=== PATIENT | female | born 1990 | race Caucasian/White ===

== ENCOUNTER 2016-12-15 12:08 | Emergency (ER) | payer BC ==
[~2016-12-15] VITALS: Ht 160 cm; Wt 59.2 kg
[2016-12-15 12:31] VITALS: BP 129/71; PULSE 93; RESP 18; TEMP 98.6; O2SAT 96
--- NOTE | 2016-12-15 13:38 | PD ---
HPI . cold, cough, congestion x 5 days Chief Complaint: Cold / Flu Symptoms Time Seen by Provider: 13:38 Travel History International Travel<30 days: No Contact w/Intl Traveler<30days: No Traveled to known affect area: No History of Present Illness HPI 26-year-old female with no significant past medical history other than tobaccoism here with complaints of congestion and coughing for 5 days. Patient has tried ukji-czb-pzfkyvw remedies without any relief. She thinks she has a fever, but every time she has check she is afebrile. She is here seeking relief of her symptoms. She denies any chills. She has no rhinorrhea or sore throat. She has no other complaints. PFSH Past Medical History Medical History: Denies Significant Hx Tetanus Vaccination: > 5 Years Influenza Vaccination: No ?: Not Past Surgical History Surgical History: No Previous Surgery Social History Alcohol Use: Yes Tobacco Use: Yes Substance Use: No Allergies-Medications (Allergen,Severity, Reaction): Coded Allergies: Penicillin (Verified Allergy, Severe, Anaphylaxis, 12/15/16) Reported Meds & Prescriptions Reported Meds & Active Scripts Active Proair Hfa 8.5 GM Inh (Albuterol Sulfate) 90 Mcg/Act Aer 2 Puff INH Q6H PRN 108 mcg/actuation Prednisone 50 Mg Tab 50 Mg PO DAILY Tessalon Perles (Benzonatate) 100 Mg Cap 100 Mg PO TID PRN Zithromax Z-Ivan (Azithromycin) 250 Mg Dspk 250 Mg PO DIRECTED 500 MG (2 tabs) day 1, then 1 tab days 2-5. Review of Systems General / Constitutional: No: Fever Eyes: No: Visual changes HENT: Positive: Congestion, Other (facial pressure), No: Headaches Cardiovascular: No: Chest Pain or Discomfort Respiratory: Positive: Cough, No: Shortness of Breath Gastrointestinal: No: Abdominal Pain Genitourinary: No: Dysuria Musculoskeletal: No: Pain Skin: No Rash Neurologic: No: Weakness Psychiatric: No: Depression Endocrine: No: Polydipsia Hematologic/Lymphatic: No: Easy Bruising Physical Exam Narrative GENERAL: AAO x 3, no acute distress, Well-nourished, well-developed patient. SKIN: Warm and dry. No visible rashes or bruising. HEAD: Normocephalic and atraumatic. EYES: No scleral icterus. No injection or drainage. EOM intact, PERRLA ENT: No nasal drainage noted. Mucous membranes pink. Airway patent. No posterior pharynx erythema, edema or exudates. TMs normal bilaterally. Maxillary sinus tenderness present. NECK: Supple, trachea midline. No JVD. CARDIOVASCULAR: Regular rate and rhythm without murmurs, gallops, or rubs. RESPIRATORY: Breath sounds equally diminished bilaterally. No accessory muscle use. No rhonchi or rails. No wheezing. Dry cough heard all throughout examination. GASTROINTESTINAL: Abdomen soft, non-tender, nondistended. EXTREMITIES: No cyanosis or edema. BACK: Nontender without obvious deformity. No CVA tenderness. PSYCH: AAO x 3, normal affect. Data Data Last Documented VS Vital Signs Date Time Temp Pulse Resp B/P Pulse Ox O2 Delivery O2 Flow Rate FiO2 12/15/16 13:30 18 96 Room Air 12/15/16 12:31 98.6 93 129/71 MDM Medical Decision Making Medical Screen Exam Complete: Yes Emergency Medical Condition: Yes Medical Record Reviewed: Yes Differential Diagnosis Acute sinusitis, acute bronchitis, less likely pneumonia, less likely influenza Narrative Course 26-year-old female with no significant past medical history other than tobaccoism here with complaints of congestion and coughing for 5 days. Patient has tried cjvk-etu-cvhvamh remedies without any relief. She thinks she has a fever, but every time she has check she is afebrile. She is here seeking relief of her symptoms. She denies any chills. She has no rhinorrhea or sore throat. She has no other complaints. Patient seen and examined. She appears to have an acute sinusitis and bronchitis. Recommend a short course of antibiotics and prednisone. Recommend smoking cessation. Advise follow-up with primary care provider. Advised if her symptoms do not improve or worsen, return to the ED. Discussed the cough may linger for 6-8 weeks. Patient verbalized understanding of instructions, questions were answered, and thanked me for their care. I advised them if their condition worsens, please return to the nearest emergency room for further care. Diagnosis Primary Impression: Acute sinusitis Qualified Code: J01.00 - Acute non-recurrent maxillary sinusitis Additional Impression: Acute bronchitis Qualified Code: J20.9 - Acute bronchitis, unspecified organism Patient Instructions: Acute Bronchitis (ED), General Instructions, Sinusitis ( ED) Additional Instructions: As we discussed the cough can last 6-8 weeks. Take medications as prescribed. If you are a smoker, try to quit. Follow up with your primary care provider. If you develop sudden onset or worsening of shortness or breath, please go to the nearest emergency room. Please return to emergency department if your symptoms return or worsen. Follow up with your primary care provider. Take medications as prescribed. Med/Other Pt SpecificInfo: Prescription(s) given Scripts Albuterol 8.5 GM Inh (Proair Hfa 8.5 GM Inh)90 Mcg/Act Aer2 Puff INH Q6H PRN ( SHORTNESS OF BREATH) #1 INHALER Ref 0 108 mcg/actuation Prov:Isaac Olvera MD 12/15/16 Prednisone 50 Mg Tab50 Mg PO DAILY #5 TAB Prov:Isaac Olvera MD 12/15/16 Benzonatate (Tessalon Perles)100 Mg [id number] Mg PO TID PRN (COUGH) #30 CAP Ref 0 Prov:Isaac Olvera MD 12/15/16 Azithromycin (Zithromax Z-Ivan)250 Mg [id number] Mg PO DIRECTED #1 DSPK Ref 0 500 MG (2 tabs) day 1, then 1 tab days 2-5. Prov:Isaac Olvera MD 12/15/16 Disposition: 01 DISCHARGE HOME Condition: Stable Marie Gutierrez Dec 15, 2016 13:38
[2016-12-15] MEDS ORDERED: ALBUAER3 INH (13:43)
[2016-12-15] MEDS ORDERED: BENZ100 PO (13:43)
[2016-12-15] MEDS ORDERED: ZITHTAB PO (13:43)
[2016-12-15] MEDS ORDERED: PRED50 PO (13:43)
== END 2016-12-15 13:56 | disposition home or self-care (01) ==
LOC: PHEFT 12:08
DX: J01.90 Acute sinusitis, unspecified (principal); J20.9 Acute bronchitis, unspecified
CPT/HCPCS: 99283

== ENCOUNTER 2017-05-22 12:03 | Emergency (ER) | payer SELFPAY ==
[~2017-05-22] VITALS: Ht 160 cm; Wt 62.0 kg
[~2017-05-22 12:03] MED LIST: ALBUAER3 INH; BENZ100 PO; PRED50 PO; ZITHTAB PO
[2017-05-22 12:11] VITALS: BP 118/79; PULSE 65; RESP 16; TEMP 97.9; O2SAT 99
[2017-05-22] MEDS ORDERED: AZIT250T3 PO (13:09)
--- NOTE | 2017-05-22 13:10 | PD ---
HPI Chief Complaint: ENT Complaint Time Seen by Provider: 12:24 Travel History International Travel<30 days: No Contact w/Intl Traveler<30days: No Traveled to known affect area: No History of Present Illness HPI 27-year-old female chief complaint of productive cough and fever x one week. Patient reports subjective fevers. No aggravating or alleviating factors. Similar symptoms in the past with bronchitis. Symptom severity moderate PFSH Past Medical History Medical History: Denies Significant Hx Diminished Hearing: No Tetanus Vaccination: Unknown Influenza Vaccination: No ?: Not LMP: 04/30/17 Social History Alcohol Use: Yes (SOC) Tobacco Use: No Substance Use: No Allergies-Medications (Allergen,Severity, Reaction): Coded Allergies: penicillin G (Unverified Allergy, Severe, Anaphylaxis, 05/22/17) Reported Meds & Prescriptions Reported Meds & Active Scripts Active Azithromycin 250 Mg Tab 250 Mg PO DIRECTED Take 2 tabs (500 mg) on day 1 then 1 tab daily x 4 days. Review of Systems Except as stated in HPI: all other systems reviewed are Neg General / Constitutional: Positive: Fever Eyes: No: Visual changes HENT: No: Headaches Cardiovascular: No: Chest Pain or Discomfort Respiratory: Positive: Cough Gastrointestinal: No: Abdominal Pain Genitourinary: No: Dysuria Musculoskeletal: No: Pain Skin: No Rash Neurologic: No: Weakness Physical Exam Narrative GENERAL: Well-nourished, well-developed patient. SKIN: Focused skin assessment warm/dry. HEAD: Normocephalic. EYES: No scleral icterus. No injection or drainage. NECK: Supple, trachea midline. No JVD or lymphadenopathy. CARDIOVASCULAR: Regular rate and rhythm without murmurs, gallops, or rubs. RESPIRATORY: Breath sounds equal bilaterally. No accessory muscle use. Questionable rhonchi right upper lobe GASTROINTESTINAL: Abdomen soft, non-tender, nondistended. MUSCULOSKELETAL: No cyanosis, or edema. BACK: Nontender without obvious deformity. No CVA tenderness. Data Data Last Documented VS Vital Signs Date Time Temp Pulse Resp B/P (MAP) Pulse Ox O2 Delivery O2 Flow Rate FiO2 05/22/17 12:11 97.9 65 16 118/79 (92) 99 MDM Medical Decision Making Medical Screen Exam Complete: Yes Emergency Medical Condition: Yes Differential Diagnosis Bronchitis, pneumonia, URI Narrative Course 27-year-old female chief complaint of productive cough and fever x one week. On exam patient has questionable rhonchi. She is well-appearing and afebrile. Patient will be treated for bronchitis. Diagnosis Primary Impression: Bronchitis Referrals: Primary Care Physician Scripts Azithromycin (Azithromycin) 250 Mg Tab 250 MG PO DIRECTED for Infection, #6 TAB 0 Refills Take 2 tabs (500 mg) on day 1 then 1 tab daily x 4 days. Prov: Kate Lu 05/22/17 Disposition: 01 DISCHARGE HOME Condition: Stable Kate Lu May 22, 2017 13:09
== END 2017-05-22 13:28 | disposition home or self-care (01) ==
LOC: PHEFT 12:03
DX: J40 Bronchitis, not specified as acute or chronic (principal)
CPT/HCPCS: 99283

== ENCOUNTER 2017-11-07 10:38 | Emergency (ER) | payer SELFPAY ==
[~2017-11-07] VITALS: Ht 160 cm; Wt 62.0 kg
[~2017-11-07 10:38] MED LIST changes: -ALBUAER3 INH; +AZIT250T3 PO; -BENZ100 PO; -PRED50 PO; -ZITHTAB PO
[2017-11-07 11:06] VITALS: BP 119/69; PULSE 65; RESP 19; TEMP 98.5; O2SAT 98
[2017-11-07] MEDS ORDERED: IBUPROFEN 600 MG TAB PO ONE (11:30)
--- NOTE | 2017-11-07 11:41 | PD ---
HPI Chief Complaint: ENT Complaint Time Seen by Provider: 11:15 Travel History International Travel<30 days: No Contact w/Intl Traveler<30days: No Traveled to known affect area: No History of Present Illness HPI Patient is a 27-year-old female who comes in complaining of 2 days of cough, congestion, sweating and body aches. She says it started Monday night. She says she wakes up every night feeling like she has a fever and takes a shower to make herself feel better. She says she has a lot of nasal congestion, which makes her feel like she cannot breathe. She also reports coughing. She has taken Motrin with some relief of her symptoms. She says she is also tried over- the-counter cold medication with minimal relief. She reports multiple sick contacts. She did not receive a flu shot this year. Severity is mild. [facility] Past Medical History Diminished Hearing: No Tetanus Vaccination: Unknown ?: Not LMP: 10/10/17 Social History Alcohol Use: Yes (SOC) Tobacco Use: No Substance Use: No Allergies-Medications (Allergen,Severity, Reaction): Coded Allergies: penicillin G (Unverified Allergy, Severe, Anaphylaxis, 11/07/17) Reported Meds & Prescriptions Reported Meds & Active Scripts Active No Active Prescriptions or Reported Medications Review of Systems General / Constitutional: Positive: Fever, Chills HENT: Positive: Headaches, Sore Throat, Congestion Cardiovascular: No: Chest Pain or Discomfort Respiratory: Positive: Cough, Shortness of Breath Gastrointestinal: No: Nausea, Vomiting, Abdominal Pain Musculoskeletal: No: Edema Skin: No Rash, No Change in Pigmentation Neurologic: No: Weakness, Dizziness Physical Exam Narrative GENERAL: Awake and alert, no acute distress. SKIN: Focused skin assessment warm/dry. No wounds or signs of infection. HEAD: Atraumatic. Normocephalic. EYES: Pupils equal and round. No scleral icterus. ENT: Mild tonsillar swelling, no exudates, uvula is midline. Mucous membranes pink and moist. CARDIOVASCULAR: Regular rate and rhythm. No murmur appreciated. RESPIRATORY: No accessory muscle use. Clear to auscultation. Breath sounds equal bilaterally. MUSCULOSKELETAL: No obvious deformities. No clubbing. No cyanosis. No edema. NEUROLOGICAL: Awake and alert. No obvious cranial nerve deficits. Motor grossly within normal limits. Normal speech. Data Data Last Documented VS Vital Signs Date Time Temp Pulse Resp B/P (MAP) Pulse Ox O2 Delivery O2 Flow Rate FiO2 11/07/17 11:06 98.5 65 19 119/69 (86) 98 Orders Orders Chest, Pa & Lat (11/07/17 ) Ed Urine Pregnancytest Poc (11/07/17 11:19) Influenzae A/B Antigen (11/07/17 11:19) Group A Rapid Strep Screen (11/07/17 11:19) Ibuprofen (Motrin) (11/07/17 11:30) Strep Culture (Group A) (11/07/17 11:30) MDM Medical Decision Making Medical Screen Exam Complete: Yes Emergency Medical Condition: Yes Medical Record Reviewed: Yes Differential Diagnosis Viral illness versus pharyngitis versus influenza versus pneumonia Narrative Course Patient is a 27-year-old female who comes in complaining of cough, congestion, sweating. Exam shows no acute abnormalities. Flu swab sent is negative. Swab for strep is negative. Chest x-ray shows no acute abnormalities. Patient given Motrin. She will be discharged with a prescription for cough medicine with codeine. Advised to continue Tylenol or ibuprofen as needed for pain or fever. Advised to try [id number]-zvw-[id number] nasal decongestants. Advised to return to the ED as needed for any worsening symptoms. Diagnosis Primary Impression: URI (upper respiratory infection) Qualified Codes: J06.9 - Acute upper respiratory infection, unspecified Patient Instructions: General Instructions, Upper Respiratory Infection (ED) Additional Instructions: Drink plenty of fluids. Take Tylenol or ibuprofen as needed for pain or fever. Use auza-she-tjtycvb nasal decongestants. Take cough medicine as needed, be careful as it may make you drowsy. Return to the ED as needed for any worsening symptoms. Scripts Guaifenesin-Codeine Liq (Guaifenesin-Codeine Liq) 100-10 Mg/5 Ml Soln 10 ML PO Q6H Y for COUGH for 7 Days, #1 BOTTLE 0 Refills Prov: Grecia Fuetnes MD 11/07/17 Disposition: 01 DISCHARGE HOME Condition: Stable Grecia Fuentes MD Nov 07, 2017 11:41
--- NOTE | 2017-11-07 11:52 | RADRPT ---
EXAM DATE/TIME: 11/07/2017 11:41 [facility] COMPARISON: No previous studies available for comparison. INDICATIONS : Sore throat, cough for a couple days. MEDICAL HISTORY : None. SURGICAL HISTORY : None. ENCOUNTER: Initial ACUITY: 2 days PAIN SCORE: 0/10 LOCATION: chest FINDINGS: PA and lateral views of the chest demonstrate the lungs to be symmetrically aerated without evidence of mass, infiltrate or effusion. The cardiomediastinal contours are unremarkable. Osseous structure s are intact with a mild dextroscoliosis of the thoracolumbar spine. CONCLUSION: 1. Mild dextroscoliosis of the thoracolumbar spine. 2. Otherwise negative. Lungs are clear. Carlos Denton MD on November 07, 2017 at 11:48 Board Certified Radiologist. This report was verified electronically.
[2017-11-07] MEDS ORDERED: GUAI100S5 PO (12:16)
== END 2017-11-07 12:34 | disposition home or self-care (01) ==
LOC: PHEFT 10:38
DX: J06.9 Acute upper respiratory infection, unspecified (principal)
CPT/HCPCS: 71046; 84703; 87081; 87804; 87880; 99284